=== PATIENT | male | born 1940 | race Native Hawaiian/Other Pacific Islander ===

== ENCOUNTER 2017-07-09 09:16 | Outpatient (CLI) | payer OTHER ==
[~2017-07-09 09:16] MED LIST: IRON FORMULA OR; PREVACID30 MG OR; TIROSINT75 MCG OR; VALS160T PO; VALS160T2 PO
[2017-07-09 10:03] LABS: PLATELET COUNT 273 K/uL (142-355)
[2017-07-09 10:40] LABS: POTASSIUM 4.1 mmol/L (3.6-5.2)
== END 2017-07-09 19:30 | disposition home or self-care (01) ==
LOC: LABW 09:16
PROVIDERS: Internal Medicine
DX: R35.1 Nocturia (principal); I10 Essential (primary) hypertension
CPT/HCPCS: 36415; 80053; 80061; 81000; 82607; 84153; 84439; 84443; 85027

== ENCOUNTER 2017-12-09 09:11 | Outpatient (CLI) | payer OTHER | END 2017-12-09 20:20 | disposition home or self-care (01) | LOC: LABW 09:11 | DX: H53.2 Diplopia (principal); Z79.899 Other long term (current) drug therapy; Z51.81 Encounter for therapeutic drug level monitoring | CPT/HCPCS: 36415; 83036 ==

== ENCOUNTER 2018-02-12 08:44 | Outpatient (CLI) | payer OTHER ==
[2018-02-12 10:19] LABS: PLATELET COUNT 233 K/uL (142-355)
[2018-02-12 10:44] LABS: POTASSIUM 4.9 mmol/L (3.6-5.2)
== END 2018-02-13 08:44 | disposition home or self-care (01) ==
LOC: LABW 08:44 → US 09:00 → LABW 18:00
PROVIDERS: Internal Medicine
DX: Z00.00 Encounter for general adult medical examination without abnormal findings (principal); Z12.5 Encounter for screening for malignant neoplasm of prostate; Z13.6 Encounter for screening for cardiovascular disorders; R73.09 Other abnormal glucose; E78.00 Pure hypercholesterolemia, unspecified
CPT/HCPCS: 36415; 80053; 80061; 81000; 83036; 84153; 84439; 84443; 85027

== ENCOUNTER 2019-02-03 08:57 | Outpatient (CLI) | payer OTHER ==
[2019-02-03 09:40] LABS: PLATELET COUNT 332 K/uL (142-355)
[2019-02-03 09:51] LABS: POTASSIUM 4.6 mmol/L (3.6-5.2)
== END 2019-02-03 23:50 | disposition home or self-care (01) ==
LOC: LABW 08:57
PROVIDERS: Internal Medicine
DX: I10 Essential (primary) hypertension (principal); Z79.899 Other long term (current) drug therapy
CPT/HCPCS: 36415; 80053; 80061; 81000; 83036; 84439; 84443; 85027

== ENCOUNTER 2019-10-05 09:06 | Outpatient (CLI) | payer OTHER ==
[2019-10-05 09:29] LABS: PLATELET COUNT 249 K/uL (142-355)
[2019-10-05 09:44] LABS: POTASSIUM 4.4 mmol/L (3.6-5.2)
== END 2019-10-05 19:13 | disposition home or self-care (01) ==
LOC: LABW 09:06
PROVIDERS: Internal Medicine
DX: Z00.00 Encounter for general adult medical examination without abnormal findings (principal); I10 Essential (primary) hypertension; E03.8 Other specified hypothyroidism; Z79.899 Other long term (current) drug therapy; Z12.5 Encounter for screening for malignant neoplasm of prostate; N40.0 Benign prostatic hyperplasia without lower urinary tract symptoms
CPT/HCPCS: 36415; 80053; 80061; 81000; 83036; 84153; 84439; 84443; 85027

== ENCOUNTER 2020-09-15 14:53 | Outpatient (CLI) | payer OTHER ==
[2020-09-15 15:22] LABS: PLATELET COUNT 284 K/uL (142-355)
[2020-09-15 15:40] LABS: POTASSIUM 5.6 mmol/L (3.6-5.2)
== END 2020-09-15 22:19 | disposition home or self-care (01) ==
LOC: LAB 14:53
PROVIDERS: Internal Medicine
DX: D64.9 Anemia, unspecified (principal); I10 Essential (primary) hypertension; D51.0 Vitamin B12 deficiency anemia due to intrinsic factor deficiency; R73.02 Impaired glucose tolerance (oral); E03.8 Other specified hypothyroidism
CPT/HCPCS: 80053; 80061; 81000; 82607; 82728; 82747; 83036; 83540; 84439; 84443; 85027

== ENCOUNTER 2021-01-09 09:45 | Outpatient (CLI) | payer OTHER ==
[2021-01-09 10:25] LABS: PLATELET COUNT 220 K/uL (142-355)
[2021-01-09 10:35] LABS: POTASSIUM 4.5 mmol/L (3.6-5.2)
== END 2021-01-09 22:41 | disposition home or self-care (01) ==
LOC: LABW 09:45
PROVIDERS: ATTEND Internal Medicine Medical Oncology
DX: D64.89 Other specified anemias (principal); D51.0 Vitamin B12 deficiency anemia due to intrinsic factor deficiency; I10 Essential (primary) hypertension; E11.9 Type 2 diabetes mellitus without complications; E03.8 Other specified hypothyroidism
CPT/HCPCS: 36415; 80053; 80061; 82043; 83036; 83540; 84439; 84443; 85008; 85027; 85044

== ENCOUNTER 2021-04-04 09:55 | Outpatient (CLI) | payer OTHER ==
[2021-04-04 10:36] LABS: PLATELET COUNT 210 K/uL (142-355)
[2021-04-04 10:57] LABS: POTASSIUM 4.3 mmol/L (3.6-5.2)
== END 2021-04-04 19:47 | disposition home or self-care (01) ==
LOC: LABW 09:55
PROVIDERS: ATTEND Nurse Practitioner Family
DX: D64.89 Other specified anemias (principal); E53.8 Deficiency of other specified B group vitamins; E11.9 Type 2 diabetes mellitus without complications; E03.8 Other specified hypothyroidism
CPT/HCPCS: 36415; 80053; 80061; 81000; 82728; 83036; 83540; 83550; 84439; 84443; 85027

== ENCOUNTER 2021-07-27 08:46 | Outpatient (CLI) | payer OTHER ==
[2021-07-27 09:19] LABS: PLATELET COUNT 219 K/uL (142-355)
[2021-07-27 10:07] LABS: POTASSIUM 4.4 mmol/L (3.6-5.2)
== END 2021-07-27 20:07 | disposition home or self-care (01) ==
LOC: LABW 08:46
PROVIDERS: ATTEND Internal Medicine
DX: Z12.5 Encounter for screening for malignant neoplasm of prostate (principal); E11.9 Type 2 diabetes mellitus without complications; N40.0 Benign prostatic hyperplasia without lower urinary tract symptoms; D50.9 Iron deficiency anemia, unspecified
CPT/HCPCS: 36415; 80053; 80061; 81000; 83036; 83540; 84153; 84439; 84443; 85027

== ENCOUNTER 2021-12-15 08:43 | Outpatient (CLI) | payer OTHER ==
[2021-12-15 09:05] LABS: PLATELET COUNT 208 K/uL (142-355)
[2021-12-15 09:40] LABS: POTASSIUM 4.4 mmol/L (3.6-5.2)
== END 2021-12-15 20:35 | disposition home or self-care (01) ==
LOC: LABW 08:43
PROVIDERS: ATTEND Internal Medicine
DX: I12.9 Hypertensive chronic kidney disease with stage 1 through stage 4 chronic kidney disease, or unspecified chronic kidney disease (principal); N18.2 Chronic kidney disease, stage 2 (mild); D51.0 Vitamin B12 deficiency anemia due to intrinsic factor deficiency; E11.9 Type 2 diabetes mellitus without complications; E03.8 Other specified hypothyroidism
CPT/HCPCS: 36415; 80053; 80061; 82607; 83036; 83540; 84439; 84443; 85027

== ENCOUNTER 2022-06-14 09:36 | Outpatient (CLI) | payer OTHER ==
[2022-06-14 09:53] LABS: PLATELET COUNT 242 K/uL (142-355)
[2022-06-14 10:18] LABS: POTASSIUM 4.3 mmol/L (3.6-5.2)
== END 2022-06-14 19:05 | disposition home or self-care (01) ==
LOC: LABW 09:36
PROVIDERS: ATTEND Internal Medicine
DX: E03.9 Hypothyroidism, unspecified (principal); D51.0 Vitamin B12 deficiency anemia due to intrinsic factor deficiency; E11.9 Type 2 diabetes mellitus without complications; I10 Essential (primary) hypertension
CPT/HCPCS: 36415; 80053; 80061; 81002; 82043; 82607; 83036; 83540; 84439; 84443; 85027

== ENCOUNTER 2022-09-12 13:45 | Outpatient (CLI) | payer OTHER ==
[2022-09-12 14:35] LABS: PLATELET COUNT 271 K/uL (142-355)
[2022-09-12 14:47] LABS: POTASSIUM 4.3 mmol/L (3.6-5.2)
== END 2022-09-12 19:35 | disposition home or self-care (01) ==
LOC: RAD 13:45
PROVIDERS: ATTEND Internal Medicine
DX: J40 Bronchitis, not specified as acute or chronic (principal); R00.2 Palpitations; R05.2 Subacute cough
CPT/HCPCS: 36415; 80053; 83880; 84439; 84443; 85027; 85379

== ENCOUNTER 2022-12-20 11:23 | Outpatient (CLI) | payer OTHER ==
[2022-12-20 11:38] LABS: PLATELET COUNT 286 K/uL (142-355)
[2022-12-20 11:58] LABS: POTASSIUM 4.4 mmol/L (3.6-5.2)
== END 2022-12-20 18:59 | disposition home or self-care (01) ==
LOC: LABW 11:23
PROVIDERS: ATTEND Internal Medicine
DX: I10 Essential (primary) hypertension (principal); E03.8 Other specified hypothyroidism; R79.89 Other specified abnormal findings of blood chemistry
CPT/HCPCS: 36415; 80053; 81002; 83036; 83540; 83550; 84439; 84443; 85027

== ENCOUNTER 2023-06-10 12:46 | Outpatient (CLI) | payer OTHER ==
[2023-06-10 13:45] LABS: POTASSIUM 4.7 mmol/L (3.6-5.2)
[2023-06-10 13:48] LABS: PLATELET COUNT 270 K/uL (142-355)
== END 2023-06-10 20:49 | disposition home or self-care (01) ==
LOC: LAB 12:46
PROVIDERS: ATTEND Internal Medicine
DX: I10 Essential (primary) hypertension (principal); E03.8 Other specified hypothyroidism; K22.70 Barrett's esophagus without dysplasia; E11.9 Type 2 diabetes mellitus without complications
CPT/HCPCS: 80053; 80061; 81002; 82043; 83036; 84439; 84443; 85027